=== PATIENT | male | born 1955 | race Caucasian/White ===

== ENCOUNTER 2022-10-31 01:17 | Day surgery (SDC) | payer MEDICARE, SELFPAY ==
[2022-10-25 12:14] VITALS: BMI 24.7
--- NOTE | 2022-10-30 13:18 | P.PNAN_ITS ---
Anes - Initial Pre Proc Eval Procedure: Operation Date: 10/31/22 08:00 Proposed Procedures p Screening Colonoscopy - Lenny Bhardwaj MD Date/Time: 10/30/22 13:19 Surgeon: Lenny Bhardwaj MD Pre Op Diagnosis: Hx of colon polyps Patient Data Age: 67 Gender: M Height: 1.7 m Weight: 71.8 kg Allergies Allergy/AdvReac Type Severity Reaction Status Date / Time No Known Allergies Allergy Verified 10/31/22 06:48 Home Medications Medication Instructions Recorded Confirmed Type lisinopril 20 mg tablet 20 mg PO DAILY 10/25/22 10/31/22 History psyllium husk 0.4 gram capsule 0.4 g PO DAILY 10/25/22 10/31/22 History Patient hx anesthesia problems: none Family hx anesthesia problems: none Results Review: All pre-operative results and documents have been reviewed as part of the pre- operative evaluation. [facility] Past Medical History Medical History HTN (hypertension) Osteoarthritis Social History Social History Smoking status: Light tobacco smoker Tobacco type: cigars Alcohol intake: current Alcohol use details: very rare Substance use: never Substance use type: does not use Living arrangements: with family Spiritual care concerns: No Anes - Eval Final PreProcedure Day of Procedure 10/30/22 13:19 Patient weight: normal Heart: regular rate and rhythm Lungs: clear to auscultation and normal air movement Airway: Mallampati scale class II Neurological: alert and oriented Last oral intake: >/= 8 hours ASA classification: II Emergent: no Anesthetic plan: proceed Anesthesia type and monitoring: general GIVS Results Review: All pre-operative results and documents have been reviewed as part of the pre- operative evaluation. Informed Consent: The patient's anesthetic plan and its attendant risks and benefits were discussed with the patient/family/POA. Questions were solicited and answers provided to the satisfaction of the patient/family/POA.
--- NOTE | 2022-10-30 17:05 | PM.HPGS ---
History of Present Illness History of Present Illness Consent: Risks, benefits, and alternatives have been discussed and questions answered. Patient agrees to proceed with procedure. Chief complaint: Hx of colon polyps Narrative: Tra Pandey is a 67 year old male referred for colon cancer screening. Four years ago he had polyps removed when he lived in [place] Review of Systems Review of Systems: All systems reviewed & are unremarkable except as noted in HPI and below PMFSH Past Medical History Medical History HTN (hypertension) Osteoarthritis Social History Social History Smoking status: Light tobacco smoker Tobacco type: cigars Alcohol intake: current Alcohol use details: very rare Substance use: never Substance use type: does not use Living arrangements: with family Spiritual care concerns: No Meds Home Medications and Allergies Home Medications Medication Instructions Recorded Confirmed Type lisinopril 20 mg tablet 20 mg PO DAILY 10/25/22 10/25/22 History psyllium husk 0.4 gram capsule 0.4 g PO DAILY 10/25/22 10/25/22 History Allergies Allergy/AdvReac Type Severity Reaction Status Date / Time No Known Allergies Allergy Verified 10/31/22 06:48 Exam Const: General: alert Orientation/consciousness: patient oriented x3 Resp: Auscultation: clear to auscultation bilaterally Cardio: Rhythm: regular rhythm GI: GI Palp: Yes Soft to palpation and No Tenderness to palpation present (GI) Neuro: General: patient oriented x3 Assessment and Plan Assessment and plan (1) Colon cancer screening: Code(s): Z12.11 - Encounter for screening for malignant neoplasm of colon Status: Acute Assessment and Plan: Colonoscopy with possible biopsy or polypectomy or cautery or injection of substances.
[2022-10-31 06:35] VITALS: BP 148/84; PULSE 93; RESP 18; TEMP 36.5; O2SAT 97; BMI 26.2
[2022-10-31] MEDS: LACTATED RINGERS 1,000 ML 150 ML IV CONT (07:15)
[2022-10-31 08:20] VITALS: BP 85/54; PULSE 74; RESP 24; O2SAT 94
[2022-10-31 08:30] VITALS: BP 91/56; PULSE 72; RESP 22; O2SAT 95
[2022-10-31 08:40] VITALS: BP 112/75; PULSE 70; RESP 24; O2SAT 97
== END 2022-10-31 08:53 | disposition home or self-care (01) ==
PROVIDERS: PCP Anesthesiology; Visit Provider Internal Medicine Gastroenterology
PROC: 0DJD8ZZ Inspection of Lower Intestinal Tract, Via Natural or Artificial Opening Endoscopic (ICD-10-PCS; CPT 45378; principal; 2022-10-31 08:00)
DX: Z12.11 Encounter for screening for malignant neoplasm of colon (principal); D12.5 Benign neoplasm of sigmoid colon; D12.8 Benign neoplasm of rectum; I10 Essential (primary) hypertension; F17.290 Nicotine dependence, other tobacco product, uncomplicated
CPT/HCPCS: 45385; 88305; J2704; J7120

== ENCOUNTER 2024-08-23 10:10 | Outpatient (CLI) | payer MEDICARE, SELFPAY ==
[2024-08-23 12:58] LABS: Hematocrit 47.4 % (42.0-52.0); Hemoglobin 15.7 g/dL (14.0-18.0); Mean Corpuscular HGB Conc 33.1 g/dl (32-36); Mean Corpuscular Volume 93.7 fl (80-100); Mean Platelet Volume 10.9 fl (7.4-10.4); Platelet Count Result 238 k/mm3 (150-375); Red Blood Count 5.06 M/mm3 (4.6-6.20); Red Cell Distribution Width 12.7 % (11.5-14.5); White Blood Count 6.7 K/mm3 (4.5-10.0)
[2024-08-23 13:23] LABS: Alanine Aminotransferase 50 U/L (6-50); Albumin Level 4.4 g/dL (3.5-5.1); Alkaline Phosphatase 42 U/L (38-126); Anion Gap 7 mmol/L (4-12); Aspartate Amino Transferase 51 U/L (17-59); Bilirubin,Total 0.9 mg/dL (0.2-1.3); Blood Urea Nitrogen 16 mg/dL (9-20); Calcium 9.1 mg/dL (8.4-10.2); Carbon Dioxide 28 mmol/L (22-30); Chloride 99 mmol/L (98-107); Estimated Glomerular Filt Rate 54; Glucose 101 mg/dL (65-110); Potassium 4.6 mmol/L (3.4-5.0); Sodium 134 mmol/L (137-145)
[2024-08-23 13:45] LABS: Prostate Specific Antigen 0.6 ng/mL (< OR = 4.0)
== END 2024-08-23 10:11 | disposition home or self-care (01) ==
PROVIDERS: PCP Anesthesiology; Visit Provider Anesthesiology
DX: J44.9 Chronic obstructive pulmonary disease, unspecified (principal); I10 Essential (primary) hypertension
CPT/HCPCS: 36415; 80053; 84153; 85027

== ENCOUNTER 2024-08-30 08:18 | Outpatient (CLI) | payer MEDICARE, SELFPAY ==
--- NOTE | ~2024-08-30 | CT_ITS ---
CT Scan of the Chest without Contrast: Clinical Indication: Pulmonary nodule Technique: Contiguous sections were acquired throughout the chest without intravenous contrast. Dose reduction technique was used on this scan by utilizing automated exposure control and iterative recon struction technique. The dose-length product (DLP) was 141.91 mGy-cm. Findings: There is no evidence of any significant mediastinal, hilar or axillary lymphadenopathy. The mediastin al soft tissues appear normal. There is no evidence of pleural or pericardial effusion. Calcified right middle lobe granuloma noted. 5 mm left lower lobe pulmonary nodule present (axial karina ge 82). Moderate emphysema. Images through the upper abdomen reveal no abnormalities. Impression: 5 mm left lower lobe pulmonary nodule. According to Fleischner Society criteria, for a low-risk patie nt, no further follow-up required. For a high-risk patient, consider 12 month follow-up CT. Moderate emphysema. Reviewed, dictated and finalized at [facility]. Impression: 5 mm left lower lobe pulmonary nodule. According to Fleischner Society criteria , for a low-risk patient, no further follow-up required. For a high-risk patien t, consider 12 month follow-up CT. Moderate emphysema.
== END 2024-08-30 08:19 | disposition home or self-care (01) ==
LOC: GOSHIMG 08:20
PROVIDERS: PCP Student in an Organized Health Care Education/Training Program; Visit Provider Student in an Organized Health Care Education/Training Program
DX: R91.1 Solitary pulmonary nodule (principal); J43.9 Emphysema, unspecified
CPT/HCPCS: 71250

== ENCOUNTER 2025-03-03 13:25 | Outpatient (CLI) | payer MEDICARE, SELFPAY ==
--- OUTSIDE RECORDS SUMMARY | 2025-03-03 13:47 | XMS_ITS | Clinical Summary ---
Author Organization [facility] Address [address] [place] [address] Care Team Providers Care Bomb Technician Name Role Phone Eran Potts MD Primary Care Provider [phone] Allergies Active Allergy Reactions Criticality Noted Date Comments Fluticasone-Salmeterol Rash Low 05/28/2024 Medications lisinopril (PRINIVIL) 20 MG tablet 4 Active montelukast (SINGULAIR) 10 MG tabletIndications :Environmental allergies Take 1 tablet (10 mg total) by mouth nightly at bedtime. 90 tablet 3 4 Active Fluticasone Furoate (ARNUITY ELLIPTA) 50 MCG/ACT AEROSOL POWDER, BREATH ACTIVATEDIndicati ons:Moderate persistent asthma without complication (HHS/HCC) Inhale 1 puff into the lungs daily. Rinse and spit after use 30 each 6 4 Active albuterol sulfate HFA 108 (90 Base) MCG/ACT inhalerIndication s:Dyspnea on exertion INHALE 2 PUFFS BY MOUTH EVERY 4 HOURS NEEDED FOR WHEEZING 18 g 5 Active Active Problems Problem Noted Date Diagnosed Date Dyspnea on exertion 03/02/2024 Immunizations Immunization Administration Dates Next Due Arexvy Respiratory Syncytial Virus (RSV, adjuvanted) 0.5 mL, PF 12/11/2023 Pneumococcal (Prevnar 20) 09/11/2022 Family History Medical History Relation Comments Aneurysm Brother Aneurysm Maternal Uncle None Mother Relation Status Comments Brother Maternal Uncle Alive Mother Social History Tobacco Use Types Packs/Day Years Used Date Smoking Tobacco: Former Cigarettes 0.5 30 Q uit: 01/15/2023 Cigars Smokeless Tobacco: Never Tobacco Cessation:Counseling Given: Yes Comments:quit smoking cigarettes in 2007; little cigars for 10 yrs (1-2 per day) until quit in 2022 Alcohol Use Standard Drinks/Week Comments Not Currently 0 (1 standard drink = 0.6 oz pure alcohol) doesn't currently drink alcohol PHQ-2 Answer Date Recorded Patient Health Questionnaire-2 Score 0 03/02/2024 Sex and Gender Information Value Date Recorded Sex Assigned at Not on file 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 Gender Identity Not on file Sexual Orientation Not on file Last Filed Vital Signs Vital Sign Reading Time Taken Comments Blood Pressure 119/75 09/03/2024 2:40 PM CDT Pulse 84 09/03/2024 2:40 PM CDT Temperature 36.7 C (98 F) 09/03/2024 2:40 PM CDT Respiratory Rate 18 09/03/2024 2:40 PM CDT Oxygen Saturation 97% 09/03/2024 2:40 PM CDT RA Inhaled Oxygen Concentration - - Weight 85.7 kg (189 lb) 09/03/2024 2:40 PM CDT Height 170.2 cm (5' 7 ) 09/03/2024 2:40 PM CDT Body Mass Index 29.6 09/03/2024 2:40 PM CDT Plan of Treatment Health Maintenance Due Date Last Done Comments Colorectal Cancer Screening Colonoscopy (10 Years) 1955 Hepatitis C 1971 DTaP, Tdap and Td Vaccines (1 - Tdap) 1972 Zoster Vaccines (1 of 2) 2003 AAA SCREENING 2018 Annual Medicare Wellness Visit 2018 COVID-19 Vaccine ( season) 2024 08/18/2023, 05/15/2022, 08/18/2021, Additional history exists PHQ-2 (Physician [place]) 11/17/2024 03/02/2024 Pneumococcal Vaccine: 50+ Years Completed 09/11/2022 RSV Immunization or 60+ Years Completed 12/11/2023 Meningococcal B Vaccine Aged Out No l onger eligible based on patient's age to complete this topic Meningococcal Vaccine Aged Out No gabe stevie eligible based on patient's age to complete this topic RSV Immunizations Under 20 Months Aged Out No longer eligible based on patient's age to complete this topic Insurance AETNA Care Teams Bomb Technician Relationship Specialty [place] [id number] [address] PCP - General ANESTHESIOLOGY 12/10/23
--- OUTSIDE RECORDS SUMMARY | 2025-03-03 13:47 | XMS_ITS | Patient Health Record ---
Author Organization [facility] Address [address] [place] [address] Care Team Providers Care Loft Worker Pile Driving Name Role Phone Angelina Underwood Unavailable [phone] Reason For Referral No Information Plan Of Treatment No Information Insurance Providers Payer Name Payer Address Payer Phone Subscriber Number Group Number Insured Name Patient Relationship to Insured Coverage Start Date Coverage End Date Aetna Choice POS II [address] [place] [address] [phone] [id number] Dannie Dutta Self - patient is the insured
--- OUTSIDE RECORDS SUMMARY | 2025-03-03 13:47 | XMS_ITS ---
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
--- NOTE | 2025-03-03 16:27 | WPDSIXMINUTE ---
Six Minute Walk Procedure Procedure Performed Pulmonary Stress Test (6 min walk) Six Minute Walk Six Minute Walk: This is a 6 minute walk test. The test was performed and interpreted in accordance with the 2014 ERS/ATS task force guidelines. Findings: The patient's resting room air oxygen saturation measured by pulse oximetry was 96%, the heart rate was 90 bpm, and the modified Gwen dyspnea score was 1. Patient ambulated for 305 meters and oxygen saturation remained 91 to 93%. At the end of the study the heart rate was 114 bpm and the modified Gwen dyspnea score was 7. The patient did not qualify for supplemental oxygen at rest or with ambulation. There are no prior studies for comparison.
--- NOTE | 2025-03-03 16:28 | P.PCNPFT_ITS ---
PFT Procedure Performed PFT Procedure Performed Spirometry with Pre/Post Bronchodilator Plethysmography (Lung Vol) Diffusing Cap (DLCO) Flow Vol Loop PFT Interpretation This is a pulmonary function test with pre and post-bronchodilator spirometry, plethysmography and diffusing capacity. The test was performed and results interpreted in accordance with the 2019 and 2005 ATS/ERS Task Force guidelines respectively using the Global Lung Function Initiative-2012 reference equations. Patient demonstrated good effort and cooperation. Reproducibility criteria were met. The quality of the pre bronchodilator spirometry maneuver was Grade A and post bronchodilator spirometry maneuver was Grade A. Findings: Spirometry: There is decreased maximal expiratory airflow at all lung volumes with concave expiratory flow tracing. The contour the inspiratory flow tracing is truncated. The pre bronchodilator FVC is 1.39 L, 37% predicted. The pre bronchodilator FEV1 is 0.64 L, 22% predicted. The pre bronchodilator FEV1: FVC ratio is 46%. The post bronchodilator FVC is 1.60 L, representing a 14% increase. The post bronchodilator FEV1 is 0.85 L, representing a 33% increase. The post bronchodilator FEV1: FVC ratio is 53%. Plethysmography: The total lung capacity is 6.36 L, 99% predicted. The functi onal residual capacity is 4.70 L, 139% predicted. The residual volume is 4.22 L, 183% predicted. The residual volume: Total lung capacity ratio is 66%. Diffusing capacity: The diffusing capacity unadjusted for hemoglobin and carboxyhemoglobin is 8.0, 32% predicted. The diffusing capacity adjusted for alveolar volume is 2.14, 52% predicted. Impression: There is a very severe obstructive abnormality. There is significant improvement after inhaling a single dose of albuterol. The increase in residual volume to total lung volume ratio is consistent with hyperinflation from an obstructive abnormality. The diffusing capacity unadjusted for hemoglobin and carboxyhemoglobin is severely decreased and remains moderately decreased when adjusted for alveolar volume. There are no prior studies for comparison
== END 2025-03-03 13:26 | disposition home or self-care (01) ==
LOC: ANHPFT 13:27
PROVIDERS: PCP Nurse Practitioner; Visit Provider Physician Assistant
DX: J44.89 Other specified chronic obstructive pulmonary disease (principal)
CPT/HCPCS: 94060; 94618; 94726; 94729

== ENCOUNTER 2025-03-24 09:54 | Outpatient (CLI) | payer MEDICARE, SELFPAY ==
--- OUTSIDE RECORDS SUMMARY | 2025-03-24 10:10 | XMS_ITS ---
Author Organization [facility] [place] ([address]) Address [address] [place] [address] Care Team Providers Care Oil Recovery Operator Name Role Phone Angelina Underwood [phone] Encounters Encounter Location Date Provider Diagnosis [facility] [place] [address] [place] [address] 08/26/2024 Angelina Underwood Plan Of Treatment No Information Progress Notes * GURMEETDannie WILKINSONDOB:1955 ( 70 yo M)Acc No.[id number]:08/26/2024 FAN MAIL EDITOR Neuro Patient: Dannie ZHAO Provider: Valencia Underwood APRN :1955 A ge:69 Y S ex:Male Date:08/26/2024 Address:[address] [place], [place] [id number] Subjective: * Chief Complaints: * * Medical History: Objective: * Vitals: Assessment: Plan: * Treatment: * Billing Information: * Visit Code: * Procedure Codes: * Electronic signature of SREEDHAR Bernal on 03/24/2025 at 10:10 AM CDT Sign off status: Pending * Provider: Valencia Underwood APRN Date: Generated for Suad rai/Nasim/Olayinka on: 0 03/24/2025 10:10 AM CDT
--- OUTSIDE RECORDS SUMMARY | 2025-03-24 10:10 | XMS_ITS | Clinical Summary ---
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
--- OUTSIDE RECORDS SUMMARY | 2025-03-24 10:11 | XMS_ITS | Patient Health Record ---
Author Organization [facility] [place] ([address]) Address [address] [place] [address] Care Team Providers Care Millinery Salesperson Name Role Phone Angelina Underwood Unavailable [phone] Reason For Referral No Information Plan Of Treatment No Information Insurance Providers Payer Name Payer Address Payer Phone Subscriber Number Group Number Insured Name Patient Relationship to Insured Coverage Start Date Coverage End Date Aetna Choice POS II [address] [place] [address] [id number] Dannie Dutta Self - patient is the insured
[2025-03-24 19:44] LABS: Basophils Absolute Auto 0.1 K/mm3 (0.0-0.1); Eosinophils Absolute Auto 0.1 K/mm3 (0-0.3); Eosinophils Percent Auto 1.4 % (0-4.4); Hematocrit 46.5 % (42.0-52.0); Hemoglobin 15.3 g/dL (14.0-18.0); Immature Granulocyte Absolute 0.05 K/mm3 (0.00-0.031); Immature Granulocyte Percent A 0.7 % (0-0.5); Lymphocytes Absolute Auto 1.45 K/mm3 (0.9-3.2); Lymphocytes Percent Auto 20.5 % (18.3-44.2); Mean Corpuscular HGB Conc 32.9 g/dl (32-36); Mean Corpuscular Hemoglobin 30.5 pg (26-34); Mean Corpuscular Volume 92.8 fl (80-100); Mean Platelet Volume 10.2 fl (7.4-10.4); Monocytes Absolute Auto 0.5 K/mm3 (0.1-0.6); Monocytes Percent Auto 7.4 % (2.6-8.5); Neutrophils Absolute Auto 4.9 K/mm3 (1.3-6.7); Platelet Count Result 206 k/mm3 (150-375); Red Blood Count 5.01 M/mm3 (4.6-6.20); Red Cell Distribution Width 12.2 % (11.5-14.5); White Blood Count 7.1 K/mm3 (4.5-10.0)
[2025-03-24 20:21] LABS: Alanine Aminotransferase 27 U/L (6-50); Albumin Level 4.2 g/dL (3.5-5.1); Alkaline Phosphatase 41 U/L (38-126); Anion Gap 10 mmol/L (4-12); Aspartate Amino Transferase 31 U/L (17-59); Bilirubin,Total 0.8 mg/dL (0.2-1.3); Blood Urea Nitrogen 18 mg/dL (9-20); Calcium 8.6 mg/dL (8.4-10.2); Carbon Dioxide 25 mmol/L (22-30); Chloride 99 mmol/L (98-107); Cholesterol 173 mg/dL (0-200); Estimated Glomerular Filt Rate 60; Glucose 98 mg/dL (65-110); HDL Direct 37 mg/dL; Potassium 4.5 mmol/L (3.4-5.0); Sodium 134 mmol/L (137-145); Triglycerides 225 mg/dL (<150)
[2025-03-24 20:32] LABS: LDL Cholesterol Direct 84 mg/dL
[2025-03-29 16:03] LABS: Immunoglobulin E 5726 kU/L (<OR=114)
== END 2025-03-24 09:55 | disposition home or self-care (01) ==
LOC: ANHGOSHLAB 09:55
PROVIDERS: Physician Assistant; PCP Nurse Practitioner; Visit Provider Nurse Practitioner
DX: E78.5 Hyperlipidemia, unspecified (principal); I10 Essential (primary) hypertension; L29.9 Pruritus, unspecified
CPT/HCPCS: 36415; 80053; 80061; 82785; 84443; 85025; 86038; 86039

== ENCOUNTER 2025-05-18 09:30 | Outpatient (CLI) | payer MEDICARE, SELFPAY ==
--- OUTSIDE RECORDS SUMMARY | 2025-05-18 09:45 | XMS_ITS ---
Author Organization [facility] [place] ([address]) Address [address] [place] [address] Care Team Providers Care Outboard Motor Assembler Name Role Phone Angelina Underwood [phone] Encounters Encounter Location Date Provider Diagnosis [facility] [place] [address] [place] [address] 08/26/2024 Angelina Underwood Plan Of Treatment No Information Progress Notes * GURMEETDannie WILKINSONDOB:1955 ( 70 yo M)Acc No.[id number]:08/26/2024 CLOTH MERCERIZER BACK TENDER Neuro Patient: Dannie ZHAO Provider: Valencia Underwood APRN :1955 A ge:69 Y S ex:Male Date:08/26/2024 Address:[address] [place], [place] [id number] Subjective: * Chief Complaints: * * Medical History: Objective: * Vitals: Assessment: Plan: * Treatment: * Billing Information: * Visit Code: * Procedure Codes: * Electronic signature of SREEDHAR Bernal on 05/18/2025 at 09:45 AM CDT Sign off status: Pending * Provider: Valencia Underwood APRN Date: Generated for Suad rai/Nasim/Olayinka on: 0 05/18/2025 09:45 AM CDT
--- OUTSIDE RECORDS SUMMARY | 2025-05-18 09:46 | XMS_ITS | Patient Health Record ---
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 Station Agent Name Role Phone Not Available, NA Primary Care Provider Unavaila Derrek Thomas Unavailable [phone] Jim Harrison Unavailable [phone] Niharika Cole Unavailable [phone] Allergies No Known Allergies Results Component Value Reference Range Notes Spirometry Reviewed date:03/01/2025 05:19:28 PM Interpretation:Abnormal - BD response Performing Lab: Notes/Report: Abnormal - BD response SpiroPreBronchodilator_FVC 0.9 SpiroPostBronchodilator_FEF25_75 0.36 SpiroPreBronchodilator_FEF25_75 0.33 SpiroPreBronchodilator_FEV1 0.53 SpiroPrecentPredictionPost_FEF25_75 12.2 SpiroPrecentPredictionPost_FEV1 24.8 SpiroPrecentPredictionPost_FEV1_OVER_FVC 67.8 SpiroPrecentPredictionPost_FVC 36.5 SpiroPrecentPredictionPre_FEF25_75 11.1 SpiroPrecentPredictionPre_FEV1 16.4 SpiroPrecentPredictionPre_FEV1_OVER_FVC 76.4 SpiroPrecentPredictionPre_FVC 21.5 SpiroPredicted_FEF25_75 2.96 SpiroPreBronchodilator_FEV1_OVER_FVC 58.98 SpiroPreBronchodilator_PEF 0.92 SpiroPostBronchodilator_FVC 1.53 SpiroPostBronchodilator_FEV1 0.8 SpiroPostBronchodilator_FEV1_OVER_FVC 52.37 SpiroPostBronchodilator_PEF 1.92 SpiroPredicted_FVC 4.19 SpiroPredicted_FEV1 3.23 SpiroPredicted_FEV1_OVER_FVC 77.24 SpiroPredicted_PEF 7.76 Reason For Referral No Information Medications Medication SIG (Take, Route, Frequency, Duration) Notes Start Date End Date Status Montelukast Sodium 10 MG Oral; Duration: 90 Days Active Albuterol Sulfate HFA 108 (90 Base) MCG/ACT 1 puff as needed Inhalation every 4 hrs; Duration: 90 days Active Trelegy Ellipta 200-62.5-25 MCG/ACT 1 puff Inhalation Once a day; Duration: 30 days 03/31/2025 Active Nasal Washes N/A as directed intranasally Active Cetirizine HCl 10 MG 1 tablet Orally Onc e a day; Duration: 30 days Active Fluticasone Propionate 50 MCG/ACT 1 spray in each nostril Nasally Twice a day; Duration: 30 days 03/31/2025 Active AeroChamber MV - as directed; Duration: 30 days Any adult spacer Active Airsupra 90-80 MCG/ACT 2 puffs as needed Inhalation Six times a day; Duration: 30 days 03/31/2025 Active Lisinopril 20 MG Oral; Duration: 90 Days Active Flonase Allergy Relief 50 MCG/ACT 1 spray in each nostril Nasally Twice a day Active Social History Tobacco Use: Social History Observation Description Date Details (start date - stop date) Former Smoker NA - NA Sex Assigned At : Social History Observation Description Sex Assigned At Male Tobacco Control (Standard) Question Answer Notes Tobacco use: Former smoker How long has it been since you last smoked? 5-10 years AUDIT-C (Standard) Question Answer Notes Did you have a drink containing alcohol in the p ast year? No Points 0 Interpretation Negative Problems Problem Type SNOMED Code ICD Code Onset Dates Problem Status W/U Status Risk Notes Problem Chronic allergic conjunctivitis (00189294) Other chronic allergic conjunctivitis (H10.45) Active confirmed Problem Allergic rhinitis caused by pollen (disorder) (62881322) Allergic rhinitis due to pollen (J30.1) Active confirmed Problem Allergic rhinitis (25618317) Other allergic rhinitis (J30.89) Active confirmed Problem Chronic rhinitis (36932120) Chronic rhinitis (J31.0) Active confirmed Problem Uncomplicated mild persistent asthma (178025375) Mild persistent asthma, uncomplicated (J45.30) Active confirmed Problem Uncomplicated moderate persistent asthma (086259048) Moderate persistent asthma, uncomplicated (J45.40) Active confirmed Problem Uncomplicated severe persistent asthma (880490809) Severe persistent asthma, uncomplicated (J45.50) Active confirmed Problem Elevated blood pressure reading without diagnosis of hypertension (167871541) Elevated blood-pressure reading, without diagnosis of hypertension (R03.0) Active confirmed Problem Allergic rhinitis caused by animal hair and dander (528755546200112) Allergic rhinitis due to animal (cat) (dog) hair and dander (J30.81) Active confirmed Problem Pruritus (512160119) Pruritus, unspecified (L29.9) Active confirmed Problem Ingestion dermatitis caused by food (644521366) Dermatitis due to ingested food (L27.2) Active confirmed Problem Shortness of breath (001378451) Shortness of breath (R06.02) Active confirmed Vital Signs Respiratory Rate 17 /min 03/31/2025 Blood pressure diastolic 79 mm Hg 03/31/2025 Oximetry 96 % 03/31/2025 Height 68 in 03/31/2025 Blood pressure systolic 126 mm Hg 03/31/2025 Weight 198 lbs 03/31/2025 BMI 30.1 kg/m2 03/31/2025 Encounters Encounter Location Date Provider Diagnosis [facility] [address] [facility] [address] [address] 03/01/2025 Derrek Maguire Allergic rhinitis du e to pollen J30.1 ; Allergic rhinitis due to animal (cat) (dog) hair and dander J.81 ; Other allergic rhinitis J30.89 ; Other chronic allergic conjunctivitis H10.45 ; Severe persistent asthma, uncomplicated J45.50 ; Shortness of breath R06.02 ; Pruritus, unspecified L29.9 and Dermatitis due to ingested food L27.2 [facility] [address] [facility] [address] [address] 03/31/2025 Jim Harrison Allergic rhinitis du e to pollen J30.1 ; Severe persistent asthma, uncomplicated J45.50 ; Allergic rhinitis due to animal (cat) (dog) hair and dander J30.81 ; Other allergic rhinitis J30.89 ; Other chronic allergic conjunctivitis H10.45 ; Shortness of breath R06.02 ; Pruritus, unspecified L29.9 ; Dermatitis due to ingested food L27.2 and Elevated blood-pressure reading, without diagnosis of hypertension R03.0 [facility] [address] [place] [address] 04/06/2025 Jim Harrison [facility] [address] [place] [address] 04/25/2025 Niharika Mirandanba Severe persistent asthma, uncomplicated J45.50 Assessments Encounter Date Diagnosis (ICD Code) Assessment Notes Treatment Notes Treatment Clinical Notes Section Notes 03/01/2025 Allergic rhinitis due to pollen (ICD-10 - J30.1) Given the history and symptoms, skin testing was performed to common aeroallergens to determine atopic status. Tra clearly suffers from atopic disease based upon our skin testing, prior ImmunoCAPs and clinical history. Accordingly, we have introduced a new, aggressive medication regimen, discussed nasal washes and allergy-specific avoidance measures. ID held today as TCL > 1 L making SCIT unlikely at this time. Plan to trial Zyrtec, holding on starting Flonase given issues as below regarding diffuse itching 03/01/2025 Allergic rhinitis due to animal (cat) (dog) hair and dander (ICD-10 - J30.81) Follow allergen avoidance, meds and consider SCIT as an adjunctive treatment to current regimen 03/31/2025 Allergic rhinitis due to pollen (ICD-10 - J30.1) Given the history and symptoms, skin testing was performed to common aeroallergens to determine atopic status. Tra clearly suffers from atopic disease based upon our skin testing, prior ImmunoCAPs and clinical history. Accordingly, we have introduced a new, aggressive medication regimen, discussed nasal washes and allergy-specific avoidance measures. FEV1 is less than 1 litera making SCIT unlikely at this time. Stop Claritin and start Zyrtec and continue Flonse. Return in 1 month after new inhaler. 03/31/2025 Severe persistent asthma, uncomplicated (ICD-10 - J45.50) History of COPD followed Dr. Jin with persistent episodes of SOB throughout the day. ACT = 9 up from 5. No prior hospitalizations for respiratory issues. He is a former smoker, quitting in December 2022. Trial of Trelegy to see if itching returns. No benefit noted on Asmanex, but no itching. Consider Asmanex and Stialto if Trelegy doesn't improve lung function. Change LUZ to AirSupra and see if itching returns. Noted total IgE = 8231. Consider Biologic like Xolair or Tezspire. Given history and presentation, spirometry was performed with very severe obstruction. Post-BD showed improvement in FEV1 by 51% and 270 cc as well as FVC by 70% and 630 cc meeting ATS criteria for asthma. Awaiting PFT report. Await labs from outside hospital/labs 04/25/2025 Severe persistent asthma, uncomplicated (ICD-10 - J45.50) 03/31/2025 Allergic rhinitis due to animal (cat) (dog) hair and dander (ICD-10 - J30.81) Follow allergen avoidance, meds and consider SCIT as an adjunctive treatment to current regimen 03/01/2025 Other allergic rhinitis (ICD-10 - J30.89) Follow allergen avoidance, meds and consider SCIT as an adjunctive treatment to current regimen 03/31/2025 Other allergic rhinitis (ICD-10 - J30.89) Follow allergen avoidance, meds and consider SCIT as an adjunctive treatment to current regimen 03/01/2025 Other chronic allergic conjunctivitis (ICD-10 - H10.45) Given ocular signs and symptoms I encouraged allergy avoidance measures and meds as above. If symptoms persist, consider adding additional medications including intraocular antihistamine/mast cell stabilizer, PRN and consider SCIT as an adjunctive measure 03/01/2025 Severe persistent asthma, uncomplicated (ICD-10 - J45.50) History of COPD followed Dr. Jin with persistent episodes of SOB throughout the day. ACT = 5. No prior hospitalizations for respiratory issues. He is a former smoker, quitting in December 2022. Notes that he has had difficulty being around certain scents and smells since that time. No pets at home. Has had a diffuse pruritus on Advair, Breztri, and Arnuity though unclear if a formal rash is present. Generally will take for 2 weeks before itch occurs consistently. It will take about 2 weeks after stopping these inhalers. Recently on trial of Arnuity with similar onset. He denies upper airway symptoms though ImmunoCAPs were obtained with elevated IgE to tree, grass, weed, cockroach, and DM. Noted total IgE = 8231. Given history and presentation, spirometry was performed with very severe obstruction. Post-BD showed improvement in FEV1 by 51% and 270 cc as well as FVC by 70% and 630 cc meeting ATS criteria for asthma. Plan to trial mometasone as he has not attempted this type of ICS at this point. Consider step-up to Dulera pending response. Set for PFT later this week. Otherwise, I would consider trial of Xolair given elevated IgE level. Will obtain repeat to reassess 03/31/2025 Other chronic allergic conjunctivitis (ICD-10 - H10.45) Given ocular signs and symptoms I encouraged allergy avoidance measures and meds as above. If symptoms persist, consider adding additional medications including intraocular antihistamine/mast cell stabilizer, PRN and consider SCIT as an adjunctive measure 03/31/2025 Shortness of breath (ICD-10 - R06.02) as above 03/01/2025 Shortness of breath (ICD-10 - R06.02) as above 03/01/2025 Pruritus, unspecified (ICD-10 - L29.9) Recurrent onset of diffuse pruritus occurring approx 2 weeks after start Advair, Breztri, and Arnuity. This last consistently until stopping said inhalers for about 2 weeks.He denies rash occurring during this. He has trialed off Breztri and restarted with additional onset of itching. He does report potential blotchy rash with Advair though this has not occurred since. Generally will take for 2 weeks before itch occurring consistently. It will take about 2 weeks after stopping these inhalers for itching to resolve. He has seen 3 dermatologists with noted bx with Dr. Morales that didn't show anything. Will request. He does follow with PCP with reported peripheral neuropathy. Topical steroids are not beneficial. Noted total IgE = 8231. At this point, history is not clear RE this is delayed medication reaction to ICS vs idiopathic itch. I do find it odd this had occurred to multiple ICS's at this point. Advised journaling for trigger and will obtain work-up for the mean time. Will trial inhaled mometasone as above. Would not rule out side-effect in relation to peripheral neuropathy as a potential explanation. 03/31/2025 Pruritus, unspecified (ICD-10 - L29.9) Recurrent onset of diffuse pruritus occurring approx 2 weeks after start Advair, Breztri, and Arnuity. This last consistently until stopping said inhalers for about 2 weeks.He denies rash occurring during this. He has trialed off Breztri and restarted with additional onset of itching. Trial of Trelegy to look for recurrence. This is not IgE-mediated. 03/31/2025 Dermatitis due to ingested food (ICD-10 - L27.2) As we were finishing-up today's visit, Tra mentions a priro episdoe of tongue felt wierd after ingesting chocolate with hazelnut. This occurred years ago without other systemic symtpoms. He has avoided hazelnut since. Given timeframe since last ingestion, I cannot rule out and IgE-mediated hypersensitivity reaction. Advised keeping AIE on hand but responds with If I , I . Regardless, made it clear it was my recommendation to have AIE on hand at all times to counter potenital of cross contamination, He does tolerate all other TNs without issue 03/01/2025 Dermatitis due to ingested food (ICD-10 - L27.2) As we were finishing-up today's visit, Tra mentions a priro episdoe of tongue felt wierd after ingesting chocolate with hazelnut. This occurred years ago without other systemic symtpoms. He has avoided hazelnut since. Given timeframe since last ingestion, I cannot rule out and IgE-mediated hypersensitivity reaction. Advised keeping AIE on hand but responds with If I , I . Regardless, made it clear it was my recommendation to have AIE on hand at all times to counter potenital of cross contamination, He does tolerate all other TNs without issue 03/31/2025 Elevated blood-pressure reading, without diagnosis of hypertension (ICD-10 - R03.0) Continue serial checks. Plan Of Treatment Pending Test Test Name Order Date COMPREHENSIVE METABOLIC PANEL 03/01/2025 TRYPTASE 03/01/2025 TSH W/REFLEX TO FT4 03/01/2025 IMMUNOGLOBULIN E 03/01/2025 CBC (INCLUDES DIFF/PLT) 03/01/2025 KAUR IFA SCREEN W/REFL TO TITER/PATTERN,I FA(REFL) 03/01/2025 Insurance Providers Payer Name Payer Address Payer Phone Subscriber Number Group Number Insured Name Patient Relationship to Insured Coverage Start Date Coverage End Date [employer] [address] [place] [phone] [id number] Tra Drew Self - patient is the insured 5 Medical (General) History Medical History History ICD Code Chronic obstructive pulmonary disease, u nspecified J44.9
--- OUTSIDE RECORDS SUMMARY | 2025-05-18 09:46 | XMS_ITS ---
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 Name Role Phone Not Available, NA Primary Care Provider Derrek Negro Unavailable [phone] Jim Harrison [phone] REASON FOR VISIT Laboratory Review Social History Sex Assigned At : Social History Observation Description Sex Assigned At Male Encounters Encounter Location Date Provider Diagnosis [facility] [address] [place] [address] 05/05/2025 Jim Harrison Plan Of Treatment No Information Progress Notes * Aleja EASONOB:1955 ( 70 yo M)Acc No.[id number]:05/05/2025 Progress Notes Patient: Tra NG Provider: Pratibha Harrison MD :1955 A ge:70 Y S ex:Male Date:05/05/2025 Address:[address] [place], [place] [phone] Pcp:NA Not Available Subjective: * Chief Complaints: * 1 . Laboratory Review. * Medical History: Objective: * Vitals: Assessment: Plan: * Treatment: * Billing Information: * Visit Code: * Procedure Codes: * Electronic signature of Michael Harrison MD, FAAAAI on 05/18/2025 at 09:46 AM CDT Sign off status: Pending * Provider: Pratibha Harrison MD Date: 0 05/05/2025 Generated for Kathrynumesh rai/Nasim/eTransmitting on: 0 05/18/2025 09:46 AM CDT
[2025-05-18 13:00] LABS: Alanine Aminotransferase 28 U/L (6-50); Albumin Level 4.5 g/dL (3.5-5.1); Alkaline Phosphatase 36 U/L (38-126); Anion Gap 12 mmol/L (4-12); Aspartate Amino Transferase 48 U/L (17-59); Bilirubin,Total 0.8 mg/dL (0.2-1.3); Blood Urea Nitrogen 21 mg/dL (9-20); Calcium 10.0 mg/dL (8.4-10.2); Carbon Dioxide 25 mmol/L (22-30); Chloride 95 mmol/L (98-107); Estimated Glomerular Filt Rate 51; Glucose 105 mg/dL (65-110); Magnesium 1.8 mg/dL (1.6-2.3); Potassium 5.2 mmol/L (3.4-5.0); Sodium 132 mmol/L (137-145); Total Protein 8.1 g/dL (6.3-8.2)
== END 2025-05-18 09:31 | disposition home or self-care (01) ==
LOC: ANHGOSHLAB 09:30
PROVIDERS: PCP Nurse Practitioner; Visit Provider Nurse Practitioner
DX: I10 Essential (primary) hypertension (principal); I73.9 Peripheral vascular disease, unspecified; M79.10 Myalgia, unspecified site; R25.2 Cramp and spasm
CPT/HCPCS: 36415; 80053; 82550; 82552; 83735

== ENCOUNTER 2025-10-20 15:44 | Outpatient (CLI) | payer MEDICARE, SELFPAY ==
--- NOTE | ~2025-10-20 | CT_ITS ---
EXAMINATION: CT lung screening DATE: 10/20/2025 16:02 INDICATION: Personal history of nicotine dependence TECHNIQUE: Computed tomography (CT) of the chest was performed without intravenous contrast. The dose-length product was 188.35 mGy-cm. Automated exposure control and iterative reconstruction technique were employed. COMPARISON: 08/30/2024 FINDINGS: Fatty infiltration of the liver. The spleen, pancreas, adrenal glands are unremarkable. There are bilateral renal cysts. No thoracic lymphadenopathy. There is atherosclerosis of the aorta. No aneurysm. No lymphadenopathy. No significant pleural or pericardial effusion. No endobronchial lesions. There is a 6 mm nodule in the left lower lobe which is not significantly changed compared with prior study. No new pulmonary nodules or masses. There is calcified granuloma in the right middle lobe. Mild emphysema. IMPRESSION: 1. Lung-RADS category 2: Benign appearance or behavior. Continue annual screening with noncontrast low-dose chest CT in 12 months. Reviewed, dictated and finalized at location I. OF ART IMPRESSION: 1. Lung-RADS category 2: Benign appearance or behavior. Continue annual screeni ng with noncontrast low-dose chest CT in 12 months.
== END 2025-10-20 15:45 | disposition home or self-care (01) ==
PROVIDERS: PCP Nurse Practitioner; Visit Provider Physician Assistant
DX: Z12.2 Encounter for screening for malignant neoplasm of respiratory organs (principal); Z87.891 Personal history of nicotine dependence
CPT/HCPCS: 71271